=== PATIENT | male | born 1940 | race Caucasian/White ===

== ENCOUNTER 2022-09-03 12:55 | Inpatient (IN) | payer MEDICARE, BC, SELFPAY ==
[2022-09-03] VITALS (46 sets, daily range): BP systolic 84–153; BP diastolic 46–59; PULSE 56–80; RESP 12–25; TEMP 36.1–36.9; O2SAT 85–100; BMI 31.6
--- NOTE | ~2022-09-03 | CT_ITS ---
EXAMINATION: CTA chest abdomen pelvis DATE: 09/03/2022 13:38 INDICATION: Chest and back pain, diaphoresis. Evaluate for aortic dissection. TECHNIQUE: Computed tomography (CT) of the chest, abdomen, and pelvis was performed with 100 CC Omnip aque 350 intravenous contrast. Automated exposure control and iterative reconstruction technique were employed. Exam dose: 1628.91 mGy-cm total exam DLP. COMPARISON: 01/25/2019 portable AP chest 06/12/2018 CT chest high resolution scan 09/20/2016 CT abdomen noncontrast examination FINDINGS: CHEST CT: Approximately 4.7 mm anterior segment right lower lobe nodule, relatively unchanged since 06/12/2018. Focal nodular infiltrate in the posterior lateral right upper lobe including nodular density measurin g up to approximately 7 mm, new since 06/12/2018. Stable 5 mm left apical nodular density since 06/12/2018. Occasional additional very small left upper l obe nodular densities are stable since 06/12/2018. Small focal nodular infiltrate in the posterior aspect of the superior segment of the left lower lobe is new since 06/12/2018. Mild discoid atelectasis at the dependent basilar right lower lobe. Heart size is within normal range. Coronary artery calcification. There is thoracic aortic and great vessel calcification. No thoracic aortic aneurysm or dissection. No hilar or mediastinal mass lesion or lymphadenopathy. There are calcified right hilar and subcarinal nodes consistent with old granulomatous disease. ABDOMEN/PELVIS CT: There are innumerable hepatic space-occupying mass lesions of variable size, including a relatively c entral hepatic mass measuring up to 10 cm overall dimension. The findings are consistent with extensi ve hepatic metastatic disease. Some space-occupying mass lesions of the spleen suggests possible splenic metastasis as well. The exa mination is limited due to streak artifact from the patient's upper extremities which overlie the acacia st and the abdomen. The gallbladder is contracted. No bile duct dilatation. There is a 3.5 x 3.7 cm mass of the pancreatic head, likely pancreatic malignancy with extensive hepa tic metastatic disease. Normal morphology of the adrenal glands. Multiple bilateral renal cysts. Bilateral renal atrophy. No ureteral calculus or hydroureteronephrosis. There is atherosclerotic calcification of the abdominal aorta but no abdominal aortic aneurysm or dis section. No intraperitoneal or retroperitoneal or pelvic mass lesion or adenopathy or ascites is evident. Prostate enlargement and calcification. The urinary bladder is unremarkable. There is a prominent amount of fecal material in the colon but no bowel obstruction. Normal appendix. No intraperitoneal free air. Very small fat-containing umbilical hernia. Bilateral fat-containing inguinal hernias. Severe degenerative disc disease of the cervical spine Diffuse idiopathic skeletal hyperostosis of the thoracic spine. Status post posterior and interbody surgical fusion at L4-S1. Bilateral hip osteoarthritis. IMPRESSION: Approximately 3.5 x 3.7 cm pancreatic head mass consistent with pancreatic malignancy wi th extensive hepatic metastatic disease, possible splenic metastases Possible pulmonary metastases of right upper lobe and superior segment left lower lobe; these nodular densities are new since 06/12/2018 No thoracic aortic or abdominal aortic aneurysm or dissection Bilateral renal cysts Bilateral renal atrophy Reviewed, dictated and finalized at [facility] Reviewed, dictated and finalized at [facility]NAG[facility] IMPRESSION: Approximately 3.5 x 3.7 cm pancreatic head mass consistent with pa ncreatic malignancy with extensive hepatic metastatic disease, possible splenic metastases Possible pulmonary
--- NOTE | 2022-09-03 13:03 | ECG_ITS ---
Measurements Intervals [place] Rate: 65 P: 83 NE: 202 QRS: -37 QRSD: 144 T: 20 QT: 451 QTc: 470 Interpretive Statements SINUS RHYTHM LEFT AXIS DEVIATION BORDERLINE AV CONDUCTION DELAY LEFT BUNDLE BRANCH BLOCK ABNORMAL ECG COMPARED TO ECG 01/25/2019 13:35:14 SINUS RHYTHM NOW PRESENT Electronically Signed On 09-03-2022 16:04:47 [employer]ODUCTION PATTERN [employer] by Reed Hickey D.O.
--- NOTE | 2022-09-03 13:06 | PC.NURSE ---
Patient's reports patient had chest pain prior to EMS arrival today.
[2022-09-03] MEDS: SODIUM CHLORIDE 0.9% IV 1,000 ML 999 ML IV CONT (13:16)
[2022-09-03 13:31] LABS: Basophils Absolute Auto 0.1 K/mm3 (0.0-0.1); Basophils Percent Auto 0.3 % (0.2-1.2); Eosinophils Absolute Auto 0.2 K/mm3 (0-0.3); Eosinophils Percent Auto 1.3 % (0-4.4); Immature Granulocyte Absolute 0.81 K/mm3 (0.00-0.031); Immature Granulocyte Percent A 5.6 % (0-0.5); Lymphocytes Absolute Auto 1.45 K/mm3 (0.9-3.2); Lymphocytes Percent Auto 10.1 % (18.3-44.2); Mean Corpuscular HGB Conc 29.4 g/dl (32-36); Mean Corpuscular Hemoglobin 26.1 pg (26-34); Mean Corpuscular Volume 88.6 fl (80-100); Mean Platelet Volume 10.4 fl (7.4-10.4); Monocytes Absolute Auto 1.2 K/mm3 (0.1-0.6); Monocytes Percent Auto 8.1 % (2.6-8.5); Neutrophils Absolute Auto 10.7 K/mm3 (1.3-6.7); Neutrophils Percent Auto 74.6 % (45.5-73.1); Nucleated Red Blood Cells Absolute Auto 0.1 K/mm3 (0.0-0.012); Nucleated Red Blood Cells Perc 0.3 % (0.0-0.2); Platelet Count Result 527 k/mm3 (150-375); Red Blood Count 2.11 M/mm3 (4.6-6.20); Red Cell Distribution Width 18.1 % (11.5-14.5); White Blood Count 14.4 K/mm3 (4.5-10.0)
[2022-09-03 13:34] LABS: Hematocrit 18.7 % (42.0-52.0)
[2022-09-03 13:34] LABS: Estimated Glomerular Filt Rate 28
[2022-09-03 13:35] LABS: Hemoglobin 5.5 g/dL (14.0-18.0)
[2022-09-03 13:47] LABS: Alanine Aminotransferase 81 U/L (6-50); Albumin Level 2.9 g/dL (3.5-5.1); Alkaline Phosphatase 241 U/L (38-126); Anion Gap 10 mmol/L (8-16); Aspartate Amino Transferase 88 U/L (17-59); Bilirubin,Total 0.4 mg/dL (0.2-1.3); Blood Urea Nitrogen 84 mg/dL (9-20); Calcium 8.5 mg/dL (8.4-10.2); Carbon Dioxide 19 mmol/L (22-30); Chloride 107 mmol/L (98-107); Estimated Glomerular Filt Rate 31; Glucose 164 mg/dL (65-110); Potassium 5.6 mmol/L (3.4-5.0); Sodium 136 mmol/L (137-145)
[2022-09-03 13:55] LABS: Hypochromasia 2+ (NORMAL); Ovalocytes 1+ (NORMAL); Platelet Estimate Increased (Adequate); Poikilocytosis 1+ (NORMAL); Schistocytes 1+ (NORMAL)
[2022-09-03 13:58] LABS: NT Pro B Type Natriuretic Pept 895 pg/mL (5-100); Troponin I < 0.012 ng/mL (0.000-0.034)
[2022-09-03 14:05] LABS: INR 1.3; Partial Thromboplastin Time 33.1 SECONDS (22.3-36.8); Prothrombin Time 15.4 Seconds (11.1-14.7)
[2022-09-03 14:07] LABS: Influenza A QL RT-PCR Negative (Negative); Influenza B QL RT-PCR Negative (Negative); SARS-CoV-2 RNA PCR Negative
[2022-09-03] MEDS: fentaNYL CITRATE INJ (*CRX) 100 MCG/2 ML VIAL 25 MCG IV PUSH ×2 (14:12→23:05)
[2022-09-03 14:14] LABS: Lipase 2816 U/L (23-300)
--- NOTE | 2022-09-03 15:11 | ED.WEAKNESS ---
HPI - Weakness General Chief complaint: Weakness Stated complaint: weak with back pain x 1 week Time Seen by Provider: 09/03/22 12:56 History of Present Illness HPI Narrative: Patient is a 81-year-old male who presents ER with weakness and back pain. Back pain for the last week. Reports he was riding his scooter and had a bump when he had sudden increase in pain. Apparently this morning around 4 AM he had severe increase in his back pain. His gave him gabapentin. After that he received some tizanidine earlier in the morning and then some Tylenol after that. Symptoms persisted and he was brought to the ER by ambulance. In route patient found to be hypotensive and pale. Patient reports he has some history of anemia and takes iron. No black bowel movements or diarrhea. No syncope. He does report that he had some aching chest pain today. But the majority of his pain is located in his back. Recent echo with normal ejection fraction several weeks ago. Evaluated at that time for dyspnea on exertion. Related Data Home Medications Medication Instructions Recorded Confirmed lisinopril 5 mg tablet 5 mg PO DAILY 11/03/19 09/19/21 cholecalciferol (vitamin D3) 125 125 mcg PO DAILY 06/22/20 09/19/21 mcg (5,000 unit) capsule chromium 200 mcg-brindal lubin 500 1 tablet PO ONCE 06/22/20 09/19/21 mg tablet (Garcinia Cambogia) coenzyme Q10 10 mg capsule 10 mg PO ONCE 06/22/20 09/19/21 cyanocobalamin (vitamin B-12) 500 500 mcg PO DAILY 06/22/20 09/19/21 mcg tablet ferrous sulfate 325 mg (65 mg 325 mg PO DAILY 06/22/20 09/19/21 iron) tablet aspirin,buffered (calcium 81 tablet PO DAILY 11/29/20 09/19/21 carbonate-magnesium) 325 mg tablet (Bufferin) Allergies Allergy/AdvReac Type Severity Reaction Status Date / Time diclofenac Allergy Unknown DOUBLE Verified 09/19/21 11:06 VISION tramadol Allergy Unknown Unknown Verified 09/19/21 11:06 cyclobenzaprine AdvReac Unknown Itching Verified 09/19/21 11:06 [From Flexeril] oxycodone AdvReac Unknown Itching Verified 09/19/21 11:06 Review of Systems Review of Systems: All systems reviewed & are unremarkable except as noted in HPI and below Constitutional: Constitutional: Denies chills, Reports fatigue and Denies fever(s) ENT: Denies nasal congestion and Denies sore throat Cardiovascular: Cardiovascular: Reports chest pain, Denies rapid heart rate and Denies radiating jaw, neck or arm pain Respiratory: Respiratory: Denies cough and Reports dyspnea (On exertion) Gastrointestinal: Gastrointestinal: Reports abdominal pain, Denies diarrhea, Denies nausea and Denies vomiting Musculoskeletal: Musculoskeletal: Reports back pain, Denies arthralgias and Denies joint swelling Neurologic: Denies syncope, Denies headache(s), Denies focal weakness and Denies numbness PMFSH Past Medical History Medical History BPH w/o urinary obs/LUTS CAD in [place] artery Chronic low back pain CKD (chronic kidney disease) stage 3, GFR 30-59 ml/min COPD with asthma Diabetic neuropathy 09/2013 Dyslipidemia Elevated lipids Essential (primary) hypertension Excessive sweating Gout Idiopathic gout Lesion of tongue Peripheral polyneuropathy Rib fracture #8 - 03/2016 Type 2 diabetes mellitus without complication, without long-term current use of insulin Unspecified osteoarthritis, unspecified site Surgical History Surgical History History of coronary artery stent placement 2009 History of hemilaminectomy (~2012) History of laminectomy (~2012) L4-5 - 1975 History of total knee arthroplasty right - 04/2016 Family History Family History Father Acute myocardial infarction, Onset Age: 72 Other Family history of malignant neoplasm Social History Social History (Reviewed 09/19/21 @ 13:07 by Timothy
[2022-09-03 16:48] LABS: Troponin I < 0.012 ng/mL (0.000-0.034)
[2022-09-03] MEDS: SODIUM CHLORIDE 0.9% IV 250 ML 30 ML IV CONT (17:11)
[2022-09-03] MEDS: fentaNYL CITRATE INJ (*CRX) 100 MCG/2 ML VIAL 50 MCG IV PUSH ×3 (17:20→21:19)
[2022-09-03] MEDS: SODIUM CHLORIDE 0.9% IV 1,000 ML 125 ML IV CONT (18:53)
[2022-09-03 20:19] LABS: Troponin I < 0.012 ng/mL (0.000-0.034)
--- NOTE | 2022-09-03 21:14 | PM.IMHP ---
H&P: HPI History of Present Illness Date/Time: 09/03/22 21:14 Chief Complaint: Weakness Narrative: This is a 81-year-old male patient who came to the emergency room due to weakness and back pain. The patient has been having back pain for the last week. The patient stated that he has been gaining weight and his appetite has been good. The patient reports that he was riding his scooter and he had a bump when he had a sudden increase in abdominal pain. This morning around 4:00 a.m. he had an increase in lower back pain and he took some Tylenol. The discomfort and the pain persistent so he activated the EMS. The patient was found to be hypotensive and pale. The patient does have a history of anemia and takes iron for this. The patient recently had an echo to evaluate his dyspnea on exertion. His H&H was found to be 5.5 and 18.7. His white count 14.4. Platelets are 527. His sodium was 136 and his potassium is 5.6. Creatinine is 2.3 with a baseline of 1.82-1.93. His blood sugar was noted to be 164. A1c last noted on 09/21/2021 to be 6.3. Troponins are negative x2. His lipase is 2816. He was negative for influenza A/B and COVID. CT of the abdomen pelvis was read as the followingpproximately 3.5 x 3.7 cm pancreatic head mass consistent with pancreatic malignancy with extensive hepatic metastatic disease, possible splenic metastases Possible pulmonary metastases of right upper lobe and superior segment left lower lobe; these nodular densities are new since 06/12/2018 No thoracic aortic or abdominal aortic aneurysm or dissection Bilateral renal cysts Bilateral renal atrophy The patient was given 2 units of packed red blood cells. He was given IV fluids in the emergency room IV Tylenol, fentanyl, and Zofran in the emergency room. The ER physician had a long talk with his family and they are thinking about hospice. Initially the patient was admitted to observation and then changed to inpatient status on the date of service of 09/03/2022 Review of Systems Review of Systems: See HPI All systems reviewed & are unremarkable except as noted in HPI and below Constitutional: Constitutional: Reports as per HPI and Reports no additional constitutional complaints Eyes: Eyes: Reports as per HPI and Reports no additional eye complaints ENT: Reports system reviewed and no additional complaints, except as documented and Reports Normal hearing present Cardiovascular: Cardiovascular: Reports no additional cardiovascular complaints Respiratory: Respiratory: Reports no additional respiratory complaints and Reports no additional respiratory complaints Gastrointestinal: Gastrointestinal: Reports as per HPI and Reports no additional gastrointestinal complaints Musculoskeletal: Musculoskeletal: Reports no additional musculoskeletal complaints Integumentary/Breasts: Skin/Breast: Reports system reviewed and no additional complaints, except as docu and Reports as per HPI Neurologic: Reports system reviewed and no additional complaints, except as documented, Reports as per HPI and Reports Normal hearing present Psychiatric: Psychiatric: Reports no additional psychiatric complaints and Reports as per HPI Endocrine: Endocrine: Reports no additional endocrine complaints Hematologic/Lymphatic: Hematologic/Lymphatic: Reports no additional hematologic/lymphatic complaints Allergic/Immunologic: Allergic/Immunologic: Reports no additional allergic/immunologic complaints PMFSH Past Medical History Medical History BPH w/o urinary obs/LUTS CAD in [place] artery Chronic low back pain CKD (chronic kidney disease) stage 3, GFR 30-59 ml/min COPD with asthma Diabetic neuropathy 09/2013 Dyslipidemia Elevated lipids Essential (primary) hypertension Excessive sweating Gout Idiopathic gout Lesion of tongue Peripheral polyneuropathy Rib fracture #8 - 03/2016 Type 2 diabetes mellitus without complication, withou
[2022-09-03] MEDS: fentaNYL (*CRX) 25 MCG PATCH TRANSDERM (23:06)
[2022-09-03 23:30] LABS: Glucose Point of Care 116 mg/dl (65-105)
[2022-09-04 00:04] VITALS: BP 114/61; BP 123/57; PULSE 64; PULSE 66; RESP 18; TEMP 36.3; TEMP 36.4; O2SAT 100; O2SAT 99
[2022-09-04] MEDS: fentaNYL CITRATE INJ (*CRX) 100 MCG/2 ML VIAL 25 MCG IV PUSH ×5 (03:25→13:56)
[2022-09-04 05:08] VITALS: BP 132/49; PULSE 74; RESP 18; TEMP 36.7; O2SAT 97
[2022-09-04 05:48] LABS: Basophils Absolute Auto 0.1 K/mm3 (0.0-0.1); Basophils Percent Auto 0.4 % (0.2-1.2); Eosinophils Absolute Auto 0.2 K/mm3 (0-0.3); Eosinophils Percent Auto 1.1 % (0-4.4); Hematocrit 28.6 % (42.0-52.0); Hemoglobin 8.8 g/dL (14.0-18.0); Immature Granulocyte Absolute 0.96 K/mm3 (0.00-0.031); Immature Granulocyte Percent A 5.2 % (0-0.5); Lymphocytes Absolute Auto 1.44 K/mm3 (0.9-3.2); Lymphocytes Percent Auto 7.9 % (18.3-44.2); Mean Corpuscular HGB Conc 30.8 g/dl (32-36); Mean Corpuscular Hemoglobin 27.6 pg (26-34); Mean Corpuscular Volume 89.7 fl (80-100); Mean Platelet Volume 10.1 fl (7.4-10.4); Monocytes Absolute Auto 1.3 K/mm3 (0.1-0.6); Monocytes Percent Auto 7.3 % (2.6-8.5); Neutrophils Absolute Auto 14.3 K/mm3 (1.3-6.7); Neutrophils Percent Auto 78.1 % (45.5-73.1); Nucleated Red Blood Cells Perc 0.2 % (0.0-0.2); Platelet Count Result 554 k/mm3 (150-375); Red Blood Count 3.19 M/mm3 (4.6-6.20); Red Cell Distribution Width 16.8 % (11.5-14.5); White Blood Count 18.3 K/mm3 (4.5-10.0)
[2022-09-04 06:15] LABS: Anion Gap 9 mmol/L (8-16); Blood Urea Nitrogen 68 mg/dL (9-20); Carbon Dioxide 21 mmol/L (22-30); Chloride 109 mmol/L (98-107); Estimated CRCL calculation 32 ml/min; Estimated Glomerular Filt Rate 32; Glucose 106 mg/dL (65-110); Lipase 1780 U/L (23-300); Magnesium 2.5 mg/dL (1.6-2.3); Potassium 6.2 mmol/L (3.4-5.0); Sodium 139 mmol/L (137-145)
[2022-09-04 06:53] LABS: Platelet Estimate Adequate (Adequate)
[2022-09-04 06:54] LABS: Anisocytosis 2+ (NORMAL); Ovalocytes 2+ (NORMAL); Poikilocytosis 1+ (NORMAL)
[2022-09-04 06:56] LABS: Schistocytes 1+ (NORMAL)
[2022-09-04] MEDS: SODIUM ZIRCONIUM CYCLOSILICATE 10 GM POWD.PACK PO (06:56)
[2022-09-04 09:57] VITALS: BP 140/56; PULSE 78; RESP 14; O2SAT 99
[2022-09-04 11:58] LABS: Glucose Point of Care 178 mg/dl (65-105)
[2022-09-04] MEDS: SODIUM CHLORIDE 0.9% IV 1,000 ML 125 ML IV CONT (11:59)
--- NOTE | 2022-09-04 13:13 | PM.DS ---
DS: Admitting Diagnosis Discharge Date 09/04/2022 Admitting Diagnosis Metastatic cancer DS: Discharge Diagnosis Discharge Diagnosis (1) Cancer, metastatic to liver: Code(s): C78.7 - Secondary malignant neoplasm of liver and intrahepatic bile duct Status: Acute Assessment and Plan: Presented with back pain and progressive weakness. CTA of the chest/abdomen/pelvis on presentation showed 3.5 x 3.7 cm pancreatic head mass consistent with pancreatic malignancy with extensive hepatic metastatic disease, possible splenic and pulmonary metastases. Patient and family opted for hospice care at home. Further care per hospice (2) Mass of pancreas: Code(s): K86.89 - Other specified diseases of pancreas Status: Acute Assessment and Plan: Please see above (3) Pancreatitis: Code(s): K85.90 - Acute pancreatitis without necrosis or infection, unspecified Status: Acute Assessment and Plan: Lipase on presentation was 2816. Patient was initially made NPO for bowel rest, however decision was made to transition to comfort care and diet was allowed (4) Anemia: Code(s): D64.9 - Anemia, unspecified Status: Acute Assessment and Plan: Hemoglobin was 5.5 on presentation. Suspect secondary to malignancy. Patient was transfused 2 units packed red blood cells with improvement in hemoglobin to 8.8 following transfusion. No need for further monitoring of H&H given hospice care (5) Essential (primary) hypertension: Code(s): I10 - Essential (primary) hypertension Status: Chronic Assessment and Plan: Blood pressures were stable DS: Summary Hospital Course Hospital Course: Date of admission: 09/03/2022 Date of discharge: 09/04/2022 Joo Alanis is a 81-year-old male with a history of type 2 diabetes mellitus, hypertension, hyperlipidemia, BPH, CAD, and CKD who presented to the emergency department on 09/03/2022 with complaints of progressive weakness and back pain ongoing for 1 week. He was noted to be hypotensive and pale on EMS arrival. On presentation to the ED, his vital signs were stable, BP 118/46, white blood cell count 14.4, hemoglobin 5.5, hematocrit 18.7, platelets 527, potassium 5.6, creatinine 2.1, troponin negative, lipase 2800, and CT of abdomen/pelvis showed 3.5 x 3.7 cm pancreatic head mass consistent with pancreatic malignancy with extensive hepatic metastatic disease and possible splenic and pulmonary metastases. He was admitted to the hospitalist service for further evaluation and management. He was transfused 2 units pRBCs with improvement in hemoglobin. Given the patient's pain and findings of diffuse metastatic disease, patient and family opted for comfort care measures. Hospice consultation was arranged and patient was discharged to [facility] hospice at home on 09/04/22. Supplies were delivered to the patient's home and a hospice door to door sales representative will meet the patient at home to continue with appropriate analgesics. Time Spent with Patient Time attestation: Total time spent providing and/or coordinating discharge services: 36 minutes Time spent: Greater than 30 minutes Exam Narrative: General: Well-nourished, well-appearing 81-year-old male, semi-recumbent in bed, comfortable, NARD Neuro: awake, alert and oriented x4, speech clear, no focal neuro deficits noted HEENMT: normocephalic, atraumatic, EOMI, sclerae anicteric Respiratory: clear to auscultation bilaterally, nonlabored breathing Cardio: regular rate, regular rhythm with S1-S2 Abdomen: nondistended, normoactive bowel sounds, soft, nontender to palpation Extremities: no edema, erythema, or tenderness to palpation Skin: no rashes or lesions, warm and dry Psych: appropriate mood and affect, judgment and insight intact DS: Data Data Completed and Pending Labs on day of discharge: Labs from last 24 hours 09/04/22 09/04/22 09/04/22 11:46 05:20 05:20 WBC RBC
[2022-09-04 14:15] VITALS: BP 143/60; PULSE 81; RESP 14; TEMP 37.6; O2SAT 96
== END 2022-09-04 15:11 | disposition hospice, home (50) | DRG 435 ==
LOC: ANHED 13:01 → ANH2MED 17:23
PROVIDERS: Nurse Practitioner; Admitting Provider Family Medicine; Emergency Provider Emergency Medicine; PCP Family Medicine; Visit Provider Physician Assistant
DX: C25.0 Malignant neoplasm of head of pancreas (principal); K85.90 Acute pancreatitis without necrosis or infection, unspecified; C78.00 Secondary malignant neoplasm of unspecified lung; C78.89 Secondary malignant neoplasm of other digestive organs; C78.7 Secondary malignant neoplasm of liver and intrahepatic bile duct; Z66 Do not resuscitate; I12.9 Hypertensive chronic kidney disease with stage 1 through stage 4 chronic kidney disease, or unspecified chronic kidney disease; E11.42 Type 2 diabetes mellitus with diabetic polyneuropathy; E11.22 Type 2 diabetes mellitus with diabetic chronic kidney disease; N18.32 Chronic kidney disease, stage 3b; D63.0 Anemia in neoplastic disease; E78.5 Hyperlipidemia, unspecified; J44.9 Chronic obstructive pulmonary disease, unspecified; N40.0 Benign prostatic hyperplasia without lower urinary tract symptoms; I25.10 Atherosclerotic heart disease of native coronary artery without angina pectoris; D64.9 Anemia, unspecified; M10.00 Idiopathic gout, unspecified site; M19.90 Unspecified osteoarthritis, unspecified site; Z20.822 Contact with and (suspected) exposure to COVID-19; Z79.899 Other long term (current) drug therapy; Z95.5 Presence of coronary angioplasty implant and graft
CPT/HCPCS: 36415; 36430; 71275; 74174; 80048; 80053; 82948; 83690; 83735; 83880; 84443; 84484; 85025; 85610; 85730; 86850; 86900; 86901; 86920; 87636; 93005; 96361; 96374; 99285; A9270; G0378; J0131; J3010; J7030; J7050; P9016; Q9967